=== PATIENT | female | born 1950 ===

== ENCOUNTER 2017-02-09 22:39 | Emergency (ER) | payer MEDICAID ==
[~2017-02-09] VITALS: Ht 157.5 cm; Wt 63.0 kg
[2017-02-09 22:54] VITALS: BP 133/70; PULSE 93; RESP 16; O2SAT 94
--- NOTE | 2017-02-09 22:57 | ED.REPORT ---
HPI-Extremity Problem Upper Date of Service Feb 09, 2017 ED Provider: Nato Joyce MD A 66 year old female with a history of diabetes presents to the ED complaining of right wrist pain. The pt tripped while carrying a basket this evening and fell of her right side. She hit her head but denies loss of consciousness, neck pain or significant headache. The pt is now complaining of right wrist pain and right rip pain. She denies shortness of breath or loss of sensation in her right hand. The pt is not on blood thinners. Nursing Notes Stated Complaint: R WRIST PAIN/ FALL Chief Complaint: Multiple Trauma/Fall Nursing Notes Reviewed: Yes Allergies: Coded Allergies: metoclopramide (Verified Allergy, Intermediate, Anxiety, 02/09/17) acetaminophen (Verified Allergy, Mild, N/V, 02/09/17) oxycodone (Verified Allergy, Mild, N/V, 02/09/17) sulfamethoxazole (Verified Allergy, Mild, N/V, 02/09/17) trimethoprim (Verified Allergy, Mild, N/V, 02/09/17) Scheduled Ondansetron ODT (Ondansetron ODT) 8 Mg Tab.rapdis 8 MG PO QID Scheduled PRN Hydrocodone-Acetaminophen 5-325 mg (Hydrocodone-Acetaminophen 5-325 mg) 1 Each Tablet 1 TABLET PO Q4H PRN PRN For Pain General Time Seen by MD: 22:57 Chief Complaint Wrist injury right Hx Obtained From: Patient Arrived By: Walk-in Onset Occurred: 1 - 4 hours ago Symptom Duration: Since onset Recent Healthcare: No recent doctor visit, No recent hospitalization Similar Sx Previous: No Past Medical History Past Medical History Asthma Diabetes Past Surgical History Reports: Hysterectomy Smoking History Unknown if Ever Smoker Social History Alcohol Use: "Social" Ambulatory Status Independent Review of Systems Musculoskeletal: Reports: Extremity pain, Denies: Back pain, Neck pain Skin: Denies Rash Neurologic: Denies: Change LOC Complete sys rev & neg: except as marked. Respiratory: Denies: Non-productive cough, Shortness of breath Cardiovascular: Denies: Chest pain GI: Denies: Abdominal pain, Vomiting Physical Exam Initial Vital Signs Vital Signs (First) Date Time Temp Pulse Resp B/P Pulse Ox O2 Delivery O2 Flow Rate FiO2 02/09/17 22:54 36.8 93 16 133/70 94 Room Air Initial VS: Reviewed General/Constitutional: Awake, Alert Neck: Atraumatic, Supple, Full range of motion, Non-tender Respiratory / Chest: Breath sounds NL, Breath sounds = bilat, No respiratory distress right rib tenderness Cardiovascular: Heart rate NL, Regular rhythm, Heart sounds NL Upper Extremity / MS: Neurologic intact, Vascular intact Wrist / Hand: Neurologic intact, Vascular intact right wrist deformed, bruised, tender and guarded Skin: No rash, Warm, Dry Neurologic: Oriented X3, Speech NL, No motor deficits, No sensory deficits Head / Eyes: Normocephalic, PERRL, EOMI no palpable hematoma on head ENT: Atraumatic, Airway patent, Mucous membranes moist Abdomen: Atraumatic, Soft, Non-tender Back: Atraumatic, Full range of motion Lower Extremity / Pelvis / MS: Atraumatic, Full range of motion Psychiatric: Affect NL, Mood NL Interpretation & Diagnostics Interpretation & Diagnostics: Rib X-Ray: no overt fracture X-Ray Interpretation Xray Interpretation: radial and ulnar fracture with angulation X-Ray Ordered: Wrist right Interpretation / Wet Read by: Wet read ED physician Procedures Splint Application - Fx Mgt Splint Application- Fx Mgt: vertical traction Time: 23:36 Procedure Performed by: ED physician, Supply Chain Design Manager, Under my direct supervis Precise Anatomic Location: right wrist Type of Immobilization: Sugar tong Definitive Fracture Care: Splint, Performed by me Post-Procedure / Complications: Cap refill normal, Post splint vascular nl, Post splint neuro nl, Condition improved, Tolerated procedure well, Patient stable Splint Post-Application Eval Splint Post-Application Eval: right wrist Extremity Condition: Cap refill < 2 sec, Distal sensation intact, Distal motor Intact, No compartment syndrome Re-Eval/Medical Decision Med Decision/Clinical Course 66-year-old presents after mechanical fall with wrist fracture and some pain in her right ribs. Wrist fracture stabilized with sugar tong splint in gravity traction. Ribs without evidence of fracture on x-ray. Home with Vicodin, Naprosyn, and follow up with PCP. Follow up with orthopedics Dr. Ayala. Source of Hx: Old records Re-Evaluation/Progress : Time of Eval: 00:15 Patient Status: Condition improved Re-Evaluation/Progress Note: Pt rechecked, who is comfortable. The diagnosis and plan for discharge are discussed. The pt understands and agrees with the plan. All questions are addressed at this time. Counseled Regarding: Diagnosis, Lab results, Need for follow-up, When/why to return to ED Discharge & Departure Impression: Primary Impression: Wrist fracture, right Encounter type: initial encounter Fracture type: closed Qualified Code: S62.101A - Fracture of unspecified carpal bone, right wrist, initial encounter for closed fracture Disposition: Home Discharge Condition All VS Reviewed: Yes Condition: Stable Patient Instructions: Wrist Fracture in Adults (ED) Additional Instructions: Elevate the wrist whenever possible. Ice frequently over the first twenty-four hours. Leave the splint in place until seen by orthopedics. Call orthopedics this morning for follow-up early next week. Ibuprofen and Vicodin if needed for pain. We do not see any fracture of the ribs, or any other significant injury. Return promptly for vomiting, or any other new symptoms of concern. Referrals: Chino Clancy MD (PCP) Taz Ayala MD Scribe Attestation Portions of this note were transcribed by Renan Mohan. I, Dr. Joyce personally performed the history, physical exam and medical decision-making; I reviewed and confirmed the accuracy of the information in the transcribed note. copies to: Chino Clancy MD; Taz Ayala MD, Christopher W MD Feb 09, 2017 22:57 RENAN MOHAN Feb 09, 2017 23:48
[2017-02-09] MEDS ORDERED: HYDROcodone-APAP 5-325 mg Tablet PO ONE (23:50)
[2017-02-10] MEDS ORDERED: _HYDROcodone/APAP 5-325 mg Tablet PO PRN (00:05)
[2017-02-10] MEDS ORDERED: _Ondansetron ODT 4 mg Tablet PO PRN (00:05)
[2017-02-10] MEDS ORDERED: ONDA8TAB10 PO (00:30)
[2017-02-10] MEDS ORDERED: HYDR-4003 PO (00:30)
[2017-02-10 00:47] VITALS: BP 128/64; PULSE 88; RESP 18; O2SAT 97
--- NOTE | 2017-02-10 07:33 | DRSVH ---
PROCEDURE: X-RAY RIGHT WRIST COMPLETE, MINIMUM THREE VIEWS ([id number]) INDICATIONS: 66 year-old female with right wrist pain after fall. TECHNIQUE: 4 views of the wrist were acquired. COMPARISON: [facility], CR, HAND MIN 3VW (RT), 06/08/2011, 15:47. FINDINGS: Bones: An intra-articular fracture of the distal radius is present, with minimal impaction and dorsal angulation of the distal fracture components. Distal ulna appears intact. Carpal bones appear normal ly aligned. No suspicious bony lesions. Scaphoid view: Scaphoid appears intact. Soft tissues: No suspicious soft tissue calcifications. IMPRESSION: Minimally impacted comminuted intra-articular fracture of the distal radial metaphysis. Dictated by: Jaime De La Torre M.D. on 02/10/2017 at 7:30 Approved by: Jaime De La Trore M.D. on 02/10/2017 at 7:31
--- NOTE | 2017-02-10 07:35 | DRSVH ---
PROCEDURE: X-RAY RIGHT RIBS INCLUDEING PA CHEST, MINUMUM THREE VIEWS ([id number]) INDICATIONS: 66 year-old female with right rib pain after fall. TECHNIQUE: 2 views of the right ribs were acquired, along with a single view chest. COMPARISON: [facility], , CHEST 2 VIEW, 09/02/2015, 17:04. [facility], CR, CHEST 1VW (PORTABLE), 06/15/2011, 19:21. [facility], CR, CHEST 2VW, 06/08/2011, 15:47. FINDINGS: Skin marker denotes the site of clinical concern. Surgical changes and devices: None. Bones and chest wall: No fractures or dislocations. No suspicious bony lesions. Overlying soft tis sues appear unremarkable. Lungs and pleura: No pleural effusions or pneumothorax. Lungs appear clear. Mediastinum: Mediastinal contours appear normal. Heart size is normal. IMPRESSION: No displaced inferior right rib fractures identified. No acute cardiopulmonary disease. Dictated by: Jaime De La Torre M.D. on 02/10/2017 at 7:32 Approved by: Jaime De La Torre M.D. on 02/10/2017 at 7:34
[2017-02-17] MEDS ORDERED: LORA0.5T PO (10:08)
[2017-02-17] MEDS ORDERED: FLUT9.9S NS (10:08)
[2017-02-17] MEDS ORDERED: OMEP20CA11 PO (10:08)
[2017-02-17] MEDS ORDERED: RALO60TA PO (10:08)
[2017-02-17] MEDS ORDERED: ETAN50PE SQ (10:08)
[2017-02-17] MEDS ORDERED: ESCI20TA PO (10:08)
[2017-02-17] MEDS ORDERED: ALBU8.5H2 INHALATION (10:08)
[2017-02-17] MEDS ORDERED: METF500T4 PO (10:08)
[2017-02-17] MEDS ORDERED: LEFL20TA18 PO (10:08)
[2017-02-17] MEDS ORDERED: LISI10TA PO (10:08)
[2017-02-17] MEDS ORDERED: CRES20T PO (10:08)
== END 2017-02-10 00:56 | disposition home or self-care (01) ==
LOC: SED 22:39
DX: S52.571A Other intraarticular fracture of lower end of right radius, initial encounter for closed fracture (principal); W01.198A Fall on same level from slipping, tripping and stumbling with subsequent striking against other object, initial encounter; Y93.01 Activity, walking, marching and hiking; Y99.8 Other external cause status; Y92.89 Other specified places as the place of occurrence of the external cause; R07.81 Pleurodynia; J45.909 Unspecified asthma, uncomplicated; E11.9 Type 2 diabetes mellitus without complications; Z88.1 Allergy status to other antibiotic agents; Z88.2 Allergy status to sulfonamides; Z88.5 Allergy status to narcotic agent; Z88.8 Allergy status to other drugs, medicaments and biological substances; Z88.6 Allergy status to analgesic agent

== ENCOUNTER → 2017-02-20 | Day surgery (SDC) | payer MEDICAID ==
[~2017-02-20] VITALS: Ht 157.5 cm; Wt 61.1 kg
[2017-02-20] VITALS (7 sets, daily range): BP systolic 126–140; BP diastolic 49–68; PULSE 81–93; RESP 16–22; O2SAT 93–97
[~2017-02-20] MED LIST: ALBU8.5H2 INHALATION; Albuterol-Ipratropium 3 mL Inhalation Solution NEB PRN; Bupivacaine-MPF 0.5% 30 mL Inj INFILTRATE ONE; CRES20T PO; CeFAZolin 2 Gm/50 mL D5W Duplex Bag IV ONE; CeFAZolin 2 Gm/50 mL D5W IV Premix IV SCH; Dexamethasone 4 mg/mL Inj IVPUSH PRN; Dexamethasone 4 mg/mL Inj ONE; EPHEDrine Sulfate 50 mg/mL Inj IM PRN; EPHEDrine Sulfate 50 mg/mL Inj IVPUSH PRN; EPHEDrine/NS 5 mg/mL 5 mL Syringe ONE; ESCI20TA PO; ETAN50PE SQ; Esmolol 10,000 mCg/mL 10 mL Inj ONE; FLUT9.9S NS; HYDR-4003 PO; HYDROcodone-APAP 5-325 mg Tablet PO PRN; HYDROmorphone 1 mg/mL Inj IVPUSH PRN; Insulin Human REGular 300 Unit/3 mL Inj SUBQ SCH; Ketamine 10 mg/mL 20 mL Inj ONE; LEFL20TA18 PO; LISI10TA PO; LORA0.5T PO; Lactated Ringer's 1,000 ML IV ONE; Lactated Ringer's 1,000 ML IV SCH; Lactated Ringer's 500 ML IV PRN; METF500T4 PO; OMEP20CA11 PO; ONDA8TAB10 PO; Ondansetron 2 mg/mL 2 mL Inj IVPUSH PRN; Ondansetron 2 mg/mL 2 mL Inj ONE; Phenylephrine 10,000 mCg/mL Inj IVPUSH PRN; Phenylephrine/NS 100 mCg/mL 10 mL Syringe IVPUSH ONE; Propofol 10,000 mCg/mL 20 mL Inj ONE; RALO60TA PO; Succinylcholine Chloride 20 mg/mL 5 mL Inj ONE; fentaNYL-PF 50 mCg/mL 2 mL Inj IVPUSH PRN; fentaNYL-PF 50 mCg/mL 2 mL Inj ONE
--- NOTE | 2017-02-20 14:57 | PCM.HPANE ---
Patient Data Date of Service: Feb 20, 2017 Surgeon Admitting Provider: Attending Provider:Taz Ayala MD Primary Care Physician:Olimpia Hewitt PA-C Other Provider:Zacarias Campos Anesthesia Reason for Visit Right Distal Radial Fracture Ht/WT & BMI Height (Feet): 5 Height (Inches): 2.00 Weight (Kilograms): 61.1 Body Mass Index 24.00 Allergies Coded Allergies: metoclopramide (Verified Allergy, Intermediate, Anxiety, 02/09/17) oxycodone (Verified Allergy, Mild, N/V, 02/09/17) sulfamethoxazole (Verified Allergy, Mild, N/V, 02/09/17) trimethoprim (Verified Allergy, Mild, N/V, 02/09/17) Past Anesthesia History Anesthesia History: Denies:: Anesthesia Reactions, Difficult Intubation Diabetes History Hx Diabetes?: Yes Type of Diabetes: Type II Glycemic Control: Oral Medication Current Bedside Blood Glucose: 229 MRSA MRSA: No Medications Hypertension Medication: Yes Home Meds Incl Beta Misha: No Active Scripts Hydrocodone-Acetaminophen 5-325 mg 1 Each Tablet1 Tablet PO Q4H PRN For Pain # 20 TABLET Ref 0 Prov:Nato Joyce MD 02/10/17 Ondansetron ODT 8 Mg Tab.rapdis8 Mg PO QID #20 TABLET Prov:Nato Joyce MD 02/10/17 Reported Medications Omeprazole 20 Mg Capsule.dr20 Mg PO DAILY Ref 0 02/17/17 Metformin 500 Mg Lxurwn631 Mg PO BID Ref 0 02/17/17 Lorazepam 0.5 Mg Tablet1 Mg PO TID PRN For Anxiety Ref 0 02/17/17 Lisinopril 10 Mg Xulspe30 Mg PO DAILY 30 Days Ref 0 02/17/17 Escitalopram Oxalate (Lexapro)20 Mg Bfmnvb76 Mg PO DAILY 30 Days Ref 0 02/17/17 Leflunomide 20 Mg Epbzgy65 Mg PO DAILY 02/17/17 Fluticasone Propionate (Flonase Allergy Relief)50 Mcg/Actuation [place].susp1-2 Spr NS congestion 02/17/17 Etanercept (Enbrel)50 Mg/1 Ml Pen. Mg SQ WEEKLY 02/17/17 Rosuvastatin Calcium (Crestor)20 Mg Qloaqd79 Mg PO DAILY 30 Days Ref 0 02/17/17 Albuterol HFA (Proair HFA)8.5 Gm Hfa.aer.ad2 Puffs INHALATION Q4H PRN For Shortness of Breath #1 INHALER 02/17/17 Discontinued Reported Medications Raloxifene (Evista)60 Mg Akjcbf27 Mg PO DAILY 02/17/17 History History of ENT Problems?: No HEENT History: Denies:: Abnormal Airway Denture Type: Partial- Upper Teeth Condition: Missing Teeth Hx of Heart Problems?: Yes Cardiovascular History: Positive for:: Hypertension Denies:: Congestive Heart Failure Hx of Respiratory Problem?: Yes Respiratory History: Positive for:: Asthma Use of Inhalers / NEBS Denies:: Oxygen Administration Tuberculosis Use of C-PAP Machine Hx Neurologic Problems?: No Hx of GI Problems?: Yes Gastrointestinal History: Positive for:: Gastroesphageal Reflux Heartburn Hepatitis Hx of Problems?: No HX of Peritoneal Dialysis: No Female Hx: Denies:: Currently (hysterectomy) Problems with Breasts? Hx Musculoskeletal Problems?: Yes Musculoskeletal History: Positive for:: Musculoskeletal Trauma (fractured right radius current admission problem, GLF 02/09/17) Hx of Psycho/Social Problems?: Yes Psycho Social History: Positive for:: Hx Depression Hx Surgeries?: Yes (hysterectomy) Hx Any Other Health Problems?: Yes Hx Diabetes: YesBedside Blood Glucose: 229 Hx Alcohol Use: YesAlcoholic Drinks Per Day: "social drinker"Hx Substance Use : No Smoking Status: Unknown if Ever Smoker Have You Smoked inLast 12 mo: Yes Stop/Bang Treated for Sleep Apnea?: No Do You Have a CPAP Machine?: No S-Snoring: Do You Snore Loudly: No T-Tired: feel tired, fatigued: No O-Obsered: Observed not breath: No P-Blood Pressure: treated: Yes B- Body Mass Index > 35 kg/m2: No A- Age over 50: Yes N- Neck Large Circumference: No G- Gender Male: No PEGGY Risk Assessment: Low Risk, <3 Yes Risk Assessment Category Category 1A: Patient has history of documented sleep apnea, and HAS NOT received any narcotic, sedative or anesthesia administration during this stay. Category 1B: Patient has history of documented sleep apnea, and HAS received any narcotic , sedative or anesthesia administration during this stay Category 2: Patient has SUSPECTED Obstructive Sleep Apnea, and HAS received any narcotic , sedative or anesthesia administration during this stay. Category 3: Patient has SUSPECTED Obstructive Sleep Apnea and HAS NOT received narcotic, sedative or anesthesia administration during this stay. Category 4: Outpatient in Procedural Areas with known sleep apnea or who screen positive for High Risk via the STOP/BANG questionnaire. Exam Exam Vital Signs Vital Signs Date Time Temp Pulse Resp B/P Pulse Ox O2 Delivery O2 Flow Rate FiO2 02/20/17 12:04 36.1 81 18 131/68 95 Room Air General Appearance: Alert, Oriented X3 HEENT/AIRWAY: MP 2 Lungs: Clear to Auscultation Heart: Exam Unremarkable Meds/Labs/Diagnostics Admission Meds Current Medications Lactated Ringer's (Lr) 1,000 ml @ ud STK-MED ONCE IV Last administered on 02/20 11:30; Start 02/20/17 at 11:30; Stop 02/20/17 at 11:35; Status DC Cefazolin Sodium/ Dextrose (Ancef Inj) 2 gm STK-MED ONCE IV Last administered on 02/20/17 13:35; Start 02/20/17 at 11:36; Stop 02/20/17 at 11:37; Status DC Bupivacaine HCl (Sensorcaine-MPF 0.5% Inj) 30 ml STK-MED ONCE INFILTRATE Last administered on 02/20/17 14:09; Start 02/20/17 at 14:09; Stop 02/20/17 at 14:14 ; Status DC Bedside Blood Glucose: 229 Plan Impression Patient chart reviewed, patient interviewed and anesthestic plan with risks, benefits, and alternatives discussed, and informed consent obtained. David Hernandez MD Feb 20, 2017 14:57
--- NOTE | 2017-02-20 15:45 | DRSVH ---
PROCEDURE: X-RAY RIGHT WRIST COMPLETE, MINIMUM THREE VIEWS ([id number]) INDICATIONS: RIGHT DISTAL RADIUS ORIF - MINI C-ARM TECHNIQUE: Fluoroscopic images were obtained during an operative procedure and submitted for interpr etation following the completion of the procedure. COMPARISON: [facility], CR, XR WRIST 3VW RT, 02/09/2017, 23:17. [facility], CR, XR WRIST 3VW RT, 02/16/2017, 7:42. FINDINGS: These fluoroscopic images were performed for intraoperative localization. On these images, plate and screw fixation is seen of the distal radius fracture. No charlie intraoperative complication is seen. Please correlate with intraoperative findings. IMPRESSION: Normal intraoperative examination. Dictated by: Paulo Borges M.D. on 02/20/2017 at 15:42 Approved by: Paulo Borges M.D. on 02/20/2017 at 15:43
--- NOTE | 2017-02-20 17:09 | PCM.ANEP1 ---
Post Anesthesia PACU Phase 1 Assessment Date of Service: Feb 20, 2017 Vital Signs Vital Signs Date Time Temp Pulse Resp B/P Pulse Ox O2 Delivery O2 Flow Rate FiO2 02/20/17 16:35 85 16 126/53 93 Room Air 02/20/17 16:34 36.3 87 16 130/49 93 Room Air 02/20/17 16:15 86 21 126/53 95 Nasal Cannula 2 02/20/17 16:05 89 21 137/63 95 Nasal Cannula 2 02/20/17 16:00 88 22 140/57 97 Nasal Cannula 2 02/20/17 15:54 36.3 93 22 136/61 95 Nasal Cannula 2 02/20/17 12:04 36.1 81 18 131/68 95 Room Air Level of Alertness: Sleepy, easy to arouse Pain: No Nausea or Vomiting: No CV Function & Hydration Stable: Yes Airway Device: Oxygen Delivery: Room Air Lungs: Clear to Auscultation PACU Phase 2 Assessment Complications: No Follow up Care: N/A Patient Instructions Provided: N/A David Hernandez MD Feb 20, 2017 17:09
--- NOTE | 2017-02-21 01:31 | OP ---
[address] [address] OPERATIVE REPORT PATIENT: AUGUSTINA LEIGH : 1950 MR#: [id number] ADMIT: 02/20/2017 JOB ID: [id number] DATE OF SURGERY: 02/20/2017 PREOPERATIVE DIAGNOSIS(ES): Right distal radial comminuted intra-articular fracture with three or more fragments, ICD 10 code S52.5718. POSTOPERATIVE DIAGNOSIS(ES): Right distal radial comminuted intra-articular fracture with three or more fragments, ICD 10 code S52.5718. PROCEDURE: Open reduction and internal fixation, right distal radial intra-articular fracture with three or more fragments, CPT code 69313. SURGEON: Taz Ayala MD ANESTHESIA: General. TANNING SOLUTION MAKER: None. ESTIMATED BLOOD LOSS: 10 mL. DRAINS: None. COMPLICATIONS: None. INDICATIONS: A 66-year-old female, fell last week, sustaining a comminuted right distal radial intra-articular fracture. The patient had loss of volar tilt. DESCRIPTION OF PROCEDURE: Under adequate general anesthetic, a well-padded tourniquet was applied to the right upper extremity. Right arm was prepped and draped in sterile fashion. After appropriate time-out was called, the arm was elevated, exsanguinated, tourniquet inflated to 250 mmHg. An incision was fashioned over the distal radius. Incision was carried down through the radial aspect of the flexor carpi radialis, taking care to protect the median nerve more medial and radial artery more radial. The fascia was incised along the radial aspect of the flexor carpi radialis. The pronator quadratus was then elevated off the distal radius in an L shaped fashion. The fracture was exposed and it was reduced with a Weir elevator in the fracture site, restoring alignment. A Synthes distal radial 2.4 mm locked narrow plate was then temporarily transfixed to the distal radius with K-wires. The plate had three shaft screws and six holes distally. The oblong hole was drilled and filled with a 2.7 mm cortical screw compressing the plate to the bone. Attention was next turned to the locking screw. The distal locking screws were initially drilled and filled with locking screws over the ulnar aspect of the plate. The remaining two proximal shaft screws were drilled and filled with locking screws. The remaining three screws over the distal portion of the plate were drilled and filled with locking screws. Image intensification confirmed good position of the screws on AP and lateral views. Fracture alignment was restored. The wound was irrigated with saline. The pronator quadratus was repaired over the plate with interrupted sutures of 3-0 Vicryl. Tourniquet was released. Minimal hemostasis required. Subcutaneous layers were closed with interrupted sutures of 4-0 Monocryl. Skin was reapproximated with running subcuticular suture of 4-0 Monocryl. Mastisol and Steri-Strips were applied. The patient was placed in a well-padded short-arm fiberglass splint. The patient was taken to the recovery room in stable condition. Sponge and needle count correct. Please also note, the patient did have a regional anesthetic as well for postoperative analgesia. PLAN: The patient will be seen back in the office in two weeks with x-rays out of the splint. Depending on the clinical findings at that time, may be able to begin range of motion with a removable splint. She has been encouraged to range of motion to the fingers. The patient was discharged to home on hydrocodone 5/325, as well as Keflex since the patient does have a history of allergy to PERCOCET. The patient has been encouraged to elevate the hand to decrease swelling.
== END | disposition home or self-care (01) ==
LOC: SAS 11:18
PROVIDERS: ATTEND Orthopaedic Surgery
DX: S52.571A Other intraarticular fracture of lower end of right radius, initial encounter for closed fracture (principal); W01.0XXA Fall on same level from slipping, tripping and stumbling without subsequent striking against object, initial encounter; Y93.01 Activity, walking, marching and hiking; Y92.010 Kitchen of single-family (private) house as the place of occurrence of the external cause; I10 Essential (primary) hypertension; E78.5 Hyperlipidemia, unspecified; E11.9 Type 2 diabetes mellitus without complications; J45.909 Unspecified asthma, uncomplicated; L40.50 Arthropathic psoriasis, unspecified; G43.909 Migraine, unspecified, not intractable, without status migrainosus; F32.9 Major depressive disorder, single episode, unspecified; F17.210 Nicotine dependence, cigarettes, uncomplicated; Z79.84 Long term (current) use of oral hypoglycemic drugs; Z79.51 Long term (current) use of inhaled steroids
CPT/HCPCS: 25609; 73110; 76942; C1713; J0330; J0690; J1100; J1815; J2250; J2370; J2405; J2704; J3010; J7120